=== PATIENT | male | born 1965 | race Caucasian/White ===

== ENCOUNTER 2016-03-29 11:51 | Emergency (ER) | payer OTHER ==
[2016-03-29 13:02] LABS: Basophils % (A) 0 %; CH 30.8; CHCM 35.4; Eosinophils # (A) 0.1 k/uL (0-0.7); Eosinophils % (A) 1 %; HDW 2.53; HGB 15.3 gm/dL (13.0-17.5); Luc # (Auto) 0.05; Luc % (Auto) 1; Lymphocytes # (A) 1.4 k/uL (1.0-4.8); Lymphocytes % (A) 20 %; MCH 29.8 pg (25.0-35.0); MCHC 34.1 g/dL (31.0-37.0); MCV 87.3 fL (80.0-100.0); Mean Platelet Volume 6.7; Monocytes # (A) 0.3 k/uL (0-1.0); Monocytes % (A) 4 %; Neutrophils # (A) 5.2 k/uL (1.3-7.7); Neutrophils % (A) 74 %; RBC 5.15 m/uL (4.30-5.90); RDW 12.5 % (11.5-15.5); WBC (Perox) 7.04
--- NOTE | 2016-03-29 13:03 | XR ---
EXAMINATION TYPE: XR chest 2V DATE OF EXAM: 03/29/2016 12:52 PM COMPARISON: NONE HISTORY: Shortness of breath TECHNIQUE: Frontal and lateral views of the chest are obtained. FINDINGS: Scattered senescent parenchymal changes noted. Hyperinflation compatible with COPD. No evidence for infiltrate. No evidence for atelectasis. Heart size is stable. Mediastinal structures are stable and grossly unremarkable. No evidence for hilar prominence. Degenerative changes dorsal spine. IMPRESSION: 1. No evidence for acute pulmonary disease.
[2016-03-29 13:15] LABS: Anion Gap 12 mmol/L; Blood Urea Nitrogen 15 mg/dL (9-20); Calcium 9.5 mg/dL (8.4-10.2); Carbon Dioxide 25 mmol/L (22-30); Chloride 104 mmol/L (98-107); Glucose 94 mg/dL (74-99); Non-African American GFR(MDRD) >60 (>60 ml/min/1.73 sqM); Potassium 4.1 mmol/L (3.5-5.1); Sodium 141 mmol/L (137-145)
[2016-03-29 13:17] LABS: Partial Thromboplastin Time 24.3 sec (22.0-30.0); Prothrombin Time 10.4 sec (9.0-12.0)
--- NOTE | 2016-03-29 13:27 | ED ---
Chest Pain HPI - General Chief Complaint: Chest Pain Stated Complaint: chest pains Time Seen by Provider: 03/29/16 12:17 Source: patient Mode of arrival: wheelchair Limitations: no limitations - History of Present Illness Initial Comments: Patient is a 50-year-old male with history of asthma presenting with chest pain. Patient states the chest pain is left lower chest wall. He states he feels a fullness. Patient has tried Tylenol motion without relief. Patient even followed up with his PCP on Saturday who gave him a Z-Nba, Medrol Dosepak and Ventolin without improvement. Patient states he's been having cough and congestion for the past 2-3 weeks. Patient was recently to the [place] on a vacation for which he drove. Patient denies any history of blood clots, cancers , recent trauma, recent surgery. Patient denies history of hypertension, hyperlipidemia, diabetes, early heart disease. Patient states he was seen in [place] for the same symptoms where he had a negative cardiac workup including 2 negative troponins. - Related Data Home Medications Medication Instructions Recorded Confirmed Azithromycin [Zithromax Z-pack] See Taper PO DAILY@1200 03/29/16 03/29/16 Ipratropium/Albuterol Sulfate 1 puff INHALATION RT-Q6H PRN 03/29/16 03/29/16 [Combivent Respimat Inhaler] Loratadine [Claritin] 10 mg PO DAILY 03/29/16 03/29/16 Multivitamins, Thera [Multivitamin] 1 tab PO DAILY 03/29/16 03/29/16 predniSONE See Taper PO DIRECTED 03/29/16 03/29/16 Allergies Allergy/AdvReac Type Severity Reaction Status Date / Time No Known Allergies Allergy Verified 03/29/16 11:55 Review of Systems ROS Statement: Those systems with pertinent positive or pertinent negative responses have been documented in the HPI. Constitutional: No fever and no chills. HENT: +congestion, no rhinorrhea and no sore throat. Eyes: No discharge and no redness. Respiratory: +cough and no shortness of breath. Cardiovascular: +chest pain and no palpitations. Gastrointestinal: No nausea, no vomiting, no abdominal pain and no diarrhea. Genitourinary: No dysuria and no hematuria. Musculoskeletal: No back pain and no arthralgias. Skin: No pallor and no rash. Neurological: No dizziness and No headaches. ROS Other: All systems not noted in ROS Statement are negative. EKG Findings - EKG Comments: EKG Findings:: EKG done 03/29/2016 at 1129 shows a ventricular rate of 81 bpm, IA interval 180 ms, QRS duration 92 ms, QTC 415 milliseconds. Normal sinus rhythm no ST or T-wave changes. Past Medical History Additional Past Medical History / Comment(s): diverticultitis History of Any Multi-Drug Resistant Organisms: None Reported Past Surgical History: Hernia Repair Past Psychological History: Depression Smoking Status: Never smoker Past Alcohol Use History: Rare Past Drug Use History: None Reported General Exam - General Exam Comments Initial Comments: Constitutional: Patient appears well-developed and well-nourished. No distress. Head: Normocephalic and atraumatic. Eyes: Conjunctivae and EOM are normal. Right eye exhibits no discharge. Left eye exhibits no discharge. No scleral icterus. Neck: Normal range of motion. Neck supple. Cardiovascular: Normal rate and regular rhythm. No murmur heard. Pulmonary/Chest: Effort normal and breath sounds normal. No respiratory distress. No wheezes. Abdominal: Soft. No distension. There is no tenderness. There is no rebound and no guarding. Musculoskeletal: Normal range of motion. No edema or tenderness. Neurological: Patient alert and oriented to person, place, and time. Skin: Skin is warm and dry. Not diaphoretic. Nursing notes and vitals reviewed. Limitations: no limitations Course Vital Signs 03/29/16 11:55 Temperature 98.8 F Pulse Rate 92 Respiratory 16 Rate Blood Pressure 156/95 O2 Sat by Pulse 100 Oximetry Chest Pain [facility] Patient's a 50-year-old male presenting with chest pain. Patient's been having viral like symptoms for the past 2-3 weeks in the setting of his history of asthma. Patient on Medrol Dosepak and Ventolin which helps him - he states. Patient's risk factors for PE include age and recent travel. D-dimer was negative. CBC, BMP, troponin, d-dimer and negative with the unremarkable EKG and chest x-ray. Prior to discharge, patient was resting comfortably in bed. Course of stay improved. Denies pain. Discussed physical exam and diagnostic tests with patient. Questions answered and patient is agreeable to discharge with close follow up with Primary Care Physician. Instructed to return to Emergency Department if symptoms worsen. Disposition Clinical Impression: Chest pain, Viral syndrome Disposition: HOME SELF-CARE Instructions: Costochondritis (ED), Chest Pain (ED) Referrals: Rd Kothari MD [Primary Care Provider] - 1-2 days
[2016-03-29 14:28] VITALS: BP 133/87; PULSE 82; RESP 18; TEMP 97.3
== END 2016-03-29 14:28 | disposition home or self-care (01) ==
LOC: EC 11:51
DX: R07.9 Chest pain, unspecified (principal); B34.9 Viral infection, unspecified; Z79.899 Other long term (current) drug therapy
CPT/HCPCS: 36415; 71020; 80048; 83690; 83735; 84484; 85025; 85379; 85610; 85730; 93005; 99285

== ENCOUNTER → 2022-09-10 | Outpatient (CLI) | payer BC ==
--- NOTE | 2022-09-10 11:12 | FL ---
EXAMINATION TYPE: FL barium swallow DATE OF EXAM: 09/10/2022 COMPARISON: None HISTORY: Dysphagia TECHNIQUE: A double air contrast esophagram study is performed. FINDINGS: Contrast passes through the esophagus without intraluminal or extramural defects. No focal stenosis i s evident. Note is made of a small amount of reflux into the distal esophagus during the examination. There is complete stripping esophageal folds in the horizontal drinking position. Note is made of so me week tertiary contractions distal esophagus during the exam compatible some mild presbyesophagus. IMPRESSIONS: 1. 1. Mild presbyesophagus. 2. Mild reflux in the distal esophagus.
== END | disposition home or self-care (01) ==
LOC: RADUSWWP 09:52
PROVIDERS: ATTEND Otolaryngology
DX: K21.9 Gastro-esophageal reflux disease without esophagitis (principal); K22.89 Other specified disease of esophagus; R13.10 Dysphagia, unspecified
CPT/HCPCS: 74220

== ENCOUNTER 2023-02-06 06:24 | Day surgery (SDC) | payer BC ==
[2023-02-04 10:27] VITALS: BMI 25.0
[2023-02-06] MEDS ORDERED: LIDOCAINE 1% (10MG/ML) FOR IV START INTRADERMA PRN (06:26)
[2023-02-06] MEDS ORDERED: LACTATED RINGERS 1,000 ML IV SCH (06:26)
[2023-02-06 07:34] VITALS: TEMP 97.3
[2023-02-06] MEDS ORDERED: IV FLUID CONTINUATION 1,000 ML IV ONE (07:50)
[2023-02-06] MEDS ORDERED: PROPOFOL 10 MG/ML 20 ML VIAL IV ONE (07:50)
[2023-02-06] MEDS ORDERED: LIDOCAINE 1% INJ 10MG/ML (20 ML MDV) ONE (07:50)
--- NOTE | 2023-02-06 08:15 | P.PCN ---
Date of Procedure: 02/06/23 Procedure(s) Performed: Brief history: Patient is a pleasant 57-year-old white female scheduled for an elective upper endoscopy as well as colonoscopy as a part of evaluation of abdominal pain, intermittent dysphagia to solids and recent episode of acute sigmoid diverticulitis. 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 Initially upper endoscopy was done. The Olympus GF 160 video endoscope was inserted inserted into the mouth and esophagus intubated without any difficulty and was gradually advanced into the stomach and duodenum and carefully examined. The bulb and second part of the duodenum appeared normal. The scope was then withdrawn into the stomach adequately insufflated with air and upon careful examination the antrum had mild gastritis and biopsies were done from this area. Mucosa of the body, cardia and fundus appeared normal. The scope was then withdrawn into the esophagus. The GE junction was located at 44 cm to the incisors. Small hiatal hernia noted. It appeared regular with no erythema erosions or ulcerations. In the mid esophagus at 35 cm from the incisors there were superficial erosions identified and biopsies were done from this area. Rest of esophagus appeared normal appeared normal. Patient tolerated the procedure well. At this time the patient continued to remain sedation. Initial digital rectal examination was normal. Olympus CF 160 video colonoscope was then inserted into the rectum and gradually advanced to the cecum without any difficulty. Careful examination was performed as the scope was gradually being withdrawn. The prep was excellent. The cecum, ascending colon, transverse colon, descending colon, sigmoid colon and rectum appeared normal. Retroflexion was performed in the rectum and monitor hemorrhoids were noted. Scattered sigmoid diverticulosis. Patient tolerated the procedure well. Impression: 1. Upper endoscopy revealed mild antral gastritis, small hiatal hernia and superficial mucosal erosions in the mid esophagus status post biopsy 2. Colonoscopy revealed scattered small diverticula cyst and small internal hemorrhoids Recommendations: Findings of this examination were discussed with the patient as well as his family. He was advised to follow with the biopsy results. Recommend repeat screening colonoscopy in 10 years.
[2023-02-06 09:07] VITALS: BP 117/61; PULSE 77; RESP 17
== END 2023-02-06 09:02 | disposition home or self-care (01) ==
LOC: ORWHC2ENDO 06:24
PROVIDERS: ATTEND Internal Medicine Gastroenterology
DX: K29.50 Unspecified chronic gastritis without bleeding (principal); K21.00 Gastro-esophageal reflux disease with esophagitis, without bleeding; K57.30 Diverticulosis of large intestine without perforation or abscess without bleeding; K44.9 Diaphragmatic hernia without obstruction or gangrene; F32.A Depression, unspecified; K64.8 Other hemorrhoids; Z98.890 Other specified postprocedural states
CPT/HCPCS: 88305; 45378; 43239; J2001; J2704